=== PATIENT | female | born 2005 | race Caucasian/White ===

== ENCOUNTER 2023-05-05 01:28 | Emergency (ER) | payer MEDICAID, OTHER ==
[~2023-05-05] VITALS: Ht 157.5 cm; Wt 59.0 kg
--- NOTE | 2023-05-05 02:15 | NUR ---
PT AMB TO 2A.
--- NOTE | 2023-05-05 02:20 | NUR ---
PT UP OOB AMB TO BR. URINE COLLECTED.
[2023-05-05] MEDS ORDERED: ACETAMINOPHEN ES 500 MG TABLET PO ONE (03:15)
[2023-05-05] MEDS ORDERED: IV NORMAL SALINE 500 ML BAG IV ONE (03:15)
[2023-05-05 03:37] LABS: HEMATOCRIT 39.2 % (31.2-41.9); MEAN CORPUSCULAR HEMOGLOBIN 27.5 uug (24.7-32.8); MEAN CORPUSCULAR VOLUME 79.8 fL (75.5-95.3); PLATELET COUNT (AUTO) 166 K/uL (179-408)
[2023-05-05 03:37] LABS: *BILIRUBIN,URIN NEGATIVE (NEGATIVE); *BLOOD, URINE 1+ (NEGATIVE); *CLARITY,URINE CLEAR (CLEAR); *COLOR,URINE YELLOW (YELLOW); *KETONES,URINE NEGATIVE (NEGATIVE); *UROBILINOGEN,URINE 0.2 E.U./dl (NORMAL); LEUKOCYTE ESTERASE ,URINE NEGATIVE (NEGATIVE); NITRITE, URINE NEGATIVE (NEGATIVE); PH,URINE 5.5 (5.0-8.0); UGLUCOSE NEGATIVE (NEGATIVE)
[2023-05-05 03:41] LABS: *URINE HCG, QUAL NEGATIVE (NEGATIVE); BACTERIA,URINE NONE SEEN /HPF (NONE SEEN); SQUAMOUS EPITHELIAL CELL,UR FEW /HPF (NONE SEEN); WBC,URINE 0-3 /HPF (0-3)
[2023-05-05] MEDS ORDERED: ACETAMINOPHEN ES 500 MG TABLET ONE (03:42)
[2023-05-05 03:51] LABS: CREATININE 0.6 mg/dL (0.6-1.3); POTASSIUM 3.5 mmol/L (3.5-5.1)
[2023-05-05 03:56] LABS: BILIRUBIN,DIRECT 0.2 mg/dL (0.0-0.2); TOTAL PROTEIN, SERUM 7.4 g/dL (6.4-8.2)
[2023-05-05] MEDS ORDERED: KETOROLAC TROMETHAMINE 30 MG INJ IVP ONE (04:00)
[2023-05-05] MEDS ORDERED: SWABABLE VALVE TRANSFER SET EA MC ONE (04:07)
[2023-05-05] MEDS ORDERED: IV NORMAL SALINE 250 ML IV ONE (04:07)
[2023-05-05] MEDS ORDERED: IOHEXOL 300MG/ML 100 ML INFUS..BTL ONE (04:07)
--- NOTE | 2023-05-05 04:15 | NUR ---
PT TO CT VIA W/C.
[2023-05-05] MEDS ORDERED: KETOROLAC TROMETHAMINE 30 MG INJ ONE (04:42)
[2023-05-05 05:00] VITALS: O2SAT 99
--- NOTE | 2023-05-05 05:25 | NUR ---
Patient does not wish to proceed with medical care recommended by ( Demetrio LOBO ). Patient given information related to possible complications, up to and including , which could occur as a result of leaving the hospital at this time. Patient verbalizes understanding of risks involved due to leaving against medical advice. Patient has signed AMA form. PT AMB OUT WITH STEADY GAIT WITH MOM.
[2023-05-06] MEDS ORDERED: AZIT250T13 PO (03:10)
== END 2023-05-05 05:25 | disposition left against medical advice (07) ==
LOC: ER 01:43
DX: K52.9 Noninfective gastroenteritis and colitis, unspecified (principal); R50.9 Fever, unspecified
CPT/HCPCS: 99285; 74177; 96374; 96361; 80076; 80048; 81001; 84703; 83690; 85025; 85730; 87040 ×2; 36415; 83605; J1885; Q9967; J7040; A4663; A9150